=== PATIENT | female | born 1955 | race Caucasian/White ===

== ENCOUNTER 2021-10-18 11:28 | Emergency (ER) | payer MEDICARE, OTHER, SELFPAY ==
--- NOTE | 2021-10-18 11:36 | ED.SKABFB ---
HPI - Skin/Abscess/Foreign Bdy General Chief complaint: Skin/Abscess/Foreign Body Stated complaint: Rash Time Seen by Provider: 10/18/21 11:36 Source: patient and RN notes reviewed History of Present Illness HPI narrative: Patient is 66-year-old female who presents the urgent care with complaints of a possible insect bite to the right lower leg and a rash to the left lower arm. Patient states the bite was noticed approximately 1 week ago and she believes it is gotten larger and redness. Patient states it is not painful and she has been using calamine to the area as well as Campho-Phenique. Patient reports of the left arm rash 2 days ago and believes she may have poison karime. Patient has been putting the same cream to the area. Denies of any other acute complaints. No acute distress noted. Patient aware of the plan of care. Some parts of this dictation were generated by voice recognition software and may contain typographical and/or grammatical inaccuracies. Related Data Home Medications Medication Instructions Recorded Confirmed atorvastatin 20 mg tablet tablet 10/18/21 chlordiazepoxide-clidinium 5 cap 10/18/21 mg-2.5 mg capsule fexofenadine 180 mg tablet tablet 10/18/21 hydrochlorothiazide 25 mg tablet tablet 10/18/21 ketorolac 0.5 % eye drops drp 10/18/21 levothyroxine 112 mcg tablet tablet 10/18/21 (Levoxyl) losartan 25 mg tablet tablet 10/18/21 metoprolol succinate 50 mg tablet PO 10/18/21 tablet,extended release 24 hr prednisolone acetate 1 % eye drp 10/18/21 drops,suspension prednisone 5 mg tablet tablet 10/18/21 Allergies Allergy/AdvReac Type Severity Reaction Status Date / Time diphenhydramine Allergy Unknown Rash Verified 10/18/21 11:45 erythromycin base Allergy Unknown Rash Verified 10/18/21 11:45 Penicillins Allergy Unknown Rash Verified 10/18/21 11:45 Review of Systems Review of Systems: CONSTITUTIONAL: Denies fever, chills, or sweats. EYES: Denies visual changes, redness, or discharge. ENT: Denies rhinorrhea, congestion, sore throat, or otalgia. CARDIOVASCULAR: Denies chest pain, palpitations, or edema. RESPIRATORY: Denies cough or dyspnea. GASTROINTESTINAL: Denies abdominal pain, nausea, vomiting, or diarrhea. GENITOURINARY: Denies dysuria or hematuria. SKIN: Reports of a possible insect bite to the right lower leg and rash to the left lower arm MUSCULOSKELETAL: Denies back pain, joint pain, or myalgia. NEUROLOGIC: Denies headache, numbness, or weakness. All other systems reviewed are negative, except as documented in HPI. [facility] Family History Family History (Updated 07/29/17 @ 11:14 by DOCTOR UNKNOWN) Mother Family history of lung cancer Family history of malignant neoplasm of breast in first degree relative Hypertension Family history of cardiovascular disease Family history of arthritis Father Hypertension Patient's father is in good health Family history of cardiovascular disease Sibling Patient's brother is in good health Social History Social History Smoking status: Never smoker Alcohol intake: never Comments At the time of my signature, I reviewed and agree with the nursing past medical, surgical, social, and family history. There is no relevant family history pertinent to the patient complaint. Exam Narrative: GENERAL: This is a well-nourished, well-developed patient, in no apparent distress. HEAD: normocephalic, atraumatic. EYES: PERRL. Sclera clear/white. Vision is grossly intact. EARS: External ears normal NOSE: External nose normal with no obvious nasal discharge, nares without redness, no rhinorrhea. THROAT: Mucous membranes moist NECK: Neck supple CARDIOVASCULAR: Regular rate and rhythm without murmurs, gallops, or rubs. RESPIRATORY: Clear to auscultation. Breath sounds equal bilaterally. No wheezes, rales, or rhonchi. GASTROINTESTINAL: Abdomen soft, non-tender, nondistended. Bowel sounds are active. No hepato-splenomegaly, or palpa
[2021-10-18 11:40] VITALS: BP 123/71; PULSE 65; RESP 18; TEMP 36.7; O2SAT 100
== END 2021-10-18 12:00 | disposition home or self-care (01) ==
PROVIDERS: Emergency Provider Nurse Practitioner Family; PCP Internal Medicine
DX: L23.7 Allergic contact dermatitis due to plants, except food (principal); S80.861A Insect bite (nonvenomous), right lower leg, initial encounter; W57.XXXA Bitten or stung by nonvenomous insect and other nonvenomous arthropods, initial encounter
CPT/HCPCS: 99213; G0463

== ENCOUNTER 2021-10-20 16:38 | Emergency (ER) | payer MEDICARE, OTHER, SELFPAY ==
[2021-10-20 16:45] VITALS: BP 140/71; PULSE 59; RESP 16; TEMP 36.5; O2SAT 98
[2021-10-20 16:51] VITALS: BP 140/71; PULSE 59; RESP 16; TEMP 36.5; O2SAT 98
--- NOTE | 2021-10-20 17:34 | ED.GENADULT ---
HPI - General Adult General Chief complaint: Skin/Abscess/Foreign Body Stated complaint: Insect Bite History of Present Illness HPI narrative: Patient presents for evaluation of an area of redness and itching to the right lower extremity and left forearm. She was seen here on 10/18/2021 for similar symptoms. She thought perhaps she had received an insect bite to the right lower extremity. She was started on doxycycline and was given a prescription for triamcinolone. She is on prednisone 5 mg daily for an unknown autoimmune disease. At her 10/18/2021 visit she was instructed to increase her prednisone from 5 mg daily to 10 mg daily. She is unsure whether this made much of a difference. Some of the itching has improved with application of topical product. However redness seems to remain unchanged. No fever, chills, nausea, vomiting. No purulence from the affected area. She thought that the symptoms to her left forearm may have been related to poison karime. Related Data Home Medications Medication Instructions Recorded Confirmed atorvastatin 20 mg tablet tablet 10/18/21 chlordiazepoxide-clidinium 5 cap 10/18/21 mg-2.5 mg capsule fexofenadine 180 mg tablet tablet 10/18/21 hydrochlorothiazide 25 mg tablet tablet 10/18/21 ketorolac 0.5 % eye drops drp 10/18/21 levothyroxine 112 mcg tablet tablet 10/18/21 (Levoxyl) losartan 25 mg tablet 1 tablet PO 10/18/21 metoprolol succinate 50 mg tablet PO 10/18/21 tablet,extended release 24 hr prednisolone acetate 1 % eye drp 10/18/21 drops,suspension prednisone 5 mg tablet tablet 10/18/21 Allergies Allergy/AdvReac Type Severity Reaction Status Date / Time diphenhydramine Allergy Unknown Rash Verified 10/20/21 16:50 erythromycin base Allergy Unknown Rash Verified 10/20/21 16:50 Penicillins Allergy Unknown Rash Verified 10/20/21 16:50 Review of Systems Review of Systems: CONSTITUTIONAL: Denies fever, chills, or sweats. EYES: Denies visual changes, redness, or discharge. ENT: Denies rhinorrhea, congestion, sore throat, or otalgia. CARDIOVASCULAR: Denies chest pain, palpitations, or edema. RESPIRATORY: Denies cough or dyspnea. GASTROINTESTINAL: Denies abdominal pain, nausea, vomiting, or diarrhea. GENITOURINARY: Denies dysuria or hematuria. SKIN: Reports an area of redness and itching to the right lower extremity. Reports a small area of redness and itching to the left forearm MUSCULOSKELETAL: Denies back pain, joint pain, or myalgia. NEUROLOGIC: Denies headache, numbness, dizziness, or weakness. PSYCHIATRIC: Denies anxiety or depression. [facility] Past Medical History Medical History Autoimmune disease Hyperlipidemia Hypothyroid Surgical History Surgical History History of cataract surgery Family History Family History Mother Family history of lung cancer Family history of malignant neoplasm of breast in first degree relative Hypertension Family history of cardiovascular disease Family history of arthritis Father Hypertension Patient's father is in good health Family history of cardiovascular disease Sibling Patient's brother is in good health Social History Social History Smoking status: Never smoker Alcohol intake: never Substance use: never Gender identity (if verbalized by the patient): Female Spiritual care concerns: No Exam Narrative: GENERAL: Well-appearing, well-nourished, and in no acute distress. HEAD: Normocephalic, atraumatic. EYES: PERRLA and EOMI. ENT: Nares clear, no rhinorrhea or epistaxis. Mucous membranes moist. Oropharynx without tonsillar hypertrophy exudate or other lesions. Bilateral TMs pearly gutiérrez nonbulging NECK: Supple. No adenopathy or masses. No carotid bruits or JVD
[2021-10-20] MEDS: TETANUS,DIPHTHERIA,AC PERTUSSIS ADULT (0.5 ML) BOOSTRIX IM (17:35)
== END 2021-10-20 17:42 | disposition home or self-care (01) ==
PROVIDERS: Emergency Provider Nurse Practitioner; PCP Internal Medicine
DX: I77.6 Arteritis, unspecified (principal); Z23 Encounter for immunization; M35.9 Systemic involvement of connective tissue, unspecified; E78.5 Hyperlipidemia, unspecified; E03.9 Hypothyroidism, unspecified
CPT/HCPCS: 90471; 90715; 99213; G0463

== ENCOUNTER 2022-10-03 14:34 | Emergency (ER) | payer MEDICARE, OTHER, SELFPAY ==
--- NOTE | ~2022-10-03 | XR_ITS ---
EXAM: XR shoulder RT min 2V DATE: 10/03/2022 14:58 HISTORY: FELL ON RT SIDE. LROM SINCE. . COMPARISON: None available. FINDINGS: Normal mineralization. Nondisplaced fracture of the inferior rim of the glenoid. No other fracture. No dislocation. No lytic or blastic lesion. 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 No erosion or periosteal change. Soft tissues within normal limits. IMPRESSION: Osseous Bankart lesion (fracture of the inferior glenoid rim). Reviewed, dictated and finalized at location K.
[2022-10-03 14:40] VITALS: BP 122/58; PULSE 58; RESP 20; TEMP 36.3; O2SAT 100
--- NOTE | 2022-10-03 15:14 | ED.UPPEXIN ---
HPI - Extremity Injury (Upper) General Chief Complaint: Extremity Injury, Upper Stated Complaint: Right shoulder pain/fall History of Present Illness HPI narrative: Pt is a 67 y/o female, presents to with right shoulder pain after she fell today around 1300 when she accidentally tripped over a box in her kitchen, landing on her right shoulder. She did hit her head on a dog bowl but denies LOC, neck or back pain. She had assistance at home to stand as she has chronic knee pain, by EMS but signed a refusal. She agreed to come here for evaluation. Related Data Home Medications Medication Instructions Recorded Confirmed atorvastatin 20 mg tablet tablet 10/18/21 chlordiazepoxide-clidinium 5 cap 10/18/21 mg-2.5 mg capsule fexofenadine 180 mg tablet tablet 10/18/21 hydrochlorothiazide 25 mg tablet tablet 10/18/21 ketorolac 0.5 % eye drops drp 10/18/21 levothyroxine 112 mcg tablet tablet 10/18/21 (Levoxyl) losartan 25 mg tablet 1 tablet PO 10/18/21 metoprolol succinate 50 mg tablet PO 10/18/21 tablet,extended release 24 hr sertraline 50 mg tablet mg 10/03/22 Allergies Allergy/AdvReac Type Severity Reaction Status Date / Time diphenhydramine Allergy Unknown Rash Verified 10/20/21 16:50 erythromycin base Allergy Unknown Rash Verified 10/20/21 16:50 Penicillins Allergy Unknown Rash Verified 10/20/21 16:50 Review of Systems Musculoskeletal: Comments: refer to [facility] Past Medical History Medical History (Updated 10/03/22 @ 15:22 by JERSON Avilez) Autoimmune disease Hyperlipidemia Hypothyroid Surgical History Surgical History History of cataract surgery Family History Family History Mother Family history of lung cancer Family history of malignant neoplasm of breast in first degree relative Hypertension Family history of cardiovascular disease Family history of arthritis Father Hypertension Patient's father is in good health Family history of cardiovascular disease Sibling Patient's brother is in good health Social History Social History Smoking status: Never smoker Alcohol intake: never Substance use: never Gender identity (if verbalized by the patient): Female Spiritual care concerns: No Exam Const: General: cooperative, healthy appearing, comfortable, no acute distress, well developed, alert, awake and Physically active Orientation/consciousness: oriented to person, oriented to place, oriented to time and patient oriented x3 Limitations: no limitations HENMT: Head: normal to inspection, No palpable skull fracture present, normocephalic and atraumatic Ears: hearing grossly normal bilaterally, TM's normal bilaterally and TM normal on the right Mouth: Yes Normal oral and palatal mucosa present, Yes lip normal and Yes tongue normal Teeth and gingiva: dentition normal Eyes: General: appearance normal, both eyes and all related structures Visual Kolb: normal visual kolb by confrontation Cornea: corneas normal and corneas abnormal Pupils: Equal, round and reactive pupils present EOM: EOMs intact bilaterally Neck: Neck: normal visual inspection, full ROM, no lymphadenopathy, no meningeal signs, trachea midline and supple Lymphatic: no lymphadenopathy noted Resp: Effort & Inspection: normal respiratory effort Auscultation: clear to auscultation bilaterally Cardio: Palpation: normal PMI Rate: regular rate Rhythm: regular rhythm Heart sounds: S1 normal heart sound present and S2 normal heart sound present GI: Inspection: normal to inspection Back/Spine/Pelvis: Cervical Spine: normal cervical lordosis and cervical ROM normal Other: no C spine point tenderness, no step offs Skin: Other: no ecchymosis Neuro: General: oriented to person, oriented to
== END 2022-10-03 15:28 | disposition home or self-care (01) ==
PROVIDERS: Emergency Provider Nurse Practitioner Family; PCP Internal Medicine
DX: S42.144A Nondisplaced fracture of glenoid cavity of scapula, right shoulder, initial encounter for closed fracture (principal); W18.09XA Striking against other object with subsequent fall, initial encounter; D89.89 Other specified disorders involving the immune mechanism, not elsewhere classified; E78.5 Hyperlipidemia, unspecified; E03.9 Hypothyroidism, unspecified
CPT/HCPCS: 73030; 99213; A4565; G0463

== ENCOUNTER 2024-02-05 11:02 | Emergency (ER) | payer MEDICARE, OTHER, SELFPAY ==
[2024-02-05 11:26] VITALS: BP 133/62; PULSE 52; RESP 16; TEMP 36.1; O2SAT 100
--- NOTE | 2024-02-05 11:37 | ED.URI ---
HPI - URI/Sore Throat General Chief Complaint: Upper Respiratory Infection Stated Complaint: poss sinus infection Time Seen by Provider: 02/05/24 11:37 Source: patient, RN notes reviewed and old records reviewed Mode of arrival: ambulatory Limitations: no limitations History of Present Illness HPI Narrative: 68-year-old female to [facility] with complaint of headache, dry cough, nasal pain. Patient states that she attempted to treat at home with Kathy. Patient reports that her 2 weeks ago that she has had altered sleep. Patient denies fever, shortness of breath, difficulty swallowing, pertinent medical history. Patient resting comfortably in exam room in no acute distress, appears tired. Respirations even and nonlabored. Patient able to tolerate fluids by mouth. Related Data Home Medications Medication Instructions Recorded Confirmed atorvastatin 20 mg tablet 20 mg PO DAILY 10/18/21 02/05/24 fexofenadine 180 mg tablet 1 tablet PO DAILY 10/18/21 02/05/24 hydrochlorothiazide 25 mg tablet 25 mg PO DAILY 10/18/21 02/05/24 levothyroxine 112 mcg tablet 112 mcg PO DAILY 10/18/21 02/05/24 (Levoxyl) losartan 25 mg tablet 1 tablet PO DAILY 10/18/21 02/05/24 metoprolol succinate 50 mg 1 tablet PO DAILY 10/18/21 02/05/24 tablet,extended release 24 hr sertraline 50 mg tablet 50 mg PO DAILY 10/03/22 02/05/24 hydrochlorothiazide 12.5 mg capsule 12.5 mg PO DAILY 02/05/24 02/05/24 Allergies Allergy/AdvReac Type Severity Reaction Status Date / Time diphenhydramine Allergy Unknown Rash Verified 11/11/22 12:24 erythromycin base Allergy Unknown Rash Verified 11/11/22 12:24 Penicillins Allergy Unknown Rash Verified 11/11/22 12:24 Review of Systems Review of Systems: All systems reviewed & are unremarkable except as noted in HPI and below Constitutional: Constitutional: Reports as per HPI and Reports headache(s) Eyes: Eyes: Reports no additional eye complaints ENT: Reports as per HPI and Reports nose pain Cardiovascular: Cardiovascular: Reports no additional cardiovascular complaints, Denies chest pain and Denies dyspnea Respiratory: Respiratory: Reports no additional respiratory complaints, Reports cough and Denies dyspnea Musculoskeletal: Musculoskeletal: Reports no additional musculoskeletal complaints Neurologic: Reports system reviewed and no additional complaints, except as documented Psychiatric: Psychiatric: Reports no additional psychiatric complaints PMFSH Past Medical History Medical History (Reviewed 02/07/24 @ 11: by Soraya Whitehead APRN) Autoimmune disease Hyperlipidemia Hypothyroid Surgical History Surgical History (Reviewed 02/07/24 @ 11: by Soraya Whitehead APRN) History of cataract surgery Family History Family History (Reviewed 02/07/24 @ 11: by Soraya hWitehead APRN) Mother Family history of lung cancer Family history of malignant neoplasm of breast in first degree relative Hypertension Family history of cardiovascular disease Family history of arthritis Father Hypertension Patient's father is in good health Family history of cardiovascular disease Sibling Patient's brother is in good health Social History Social History (Reviewed 02/07/24 @ 11: by Soraya Whitehead APRN) Smoking status: Never smoker Alcohol intake: never Substance use: never Gender identity (if verbalized by the patient): Female Spiritual care concerns: No Comments At the time of my signature, I reviewed and agree with the nursing past medical, surgical, social, and family history. There is no relevant family history pertinent to the patient complaint. Exam Const: General: cooperative, comfortable, no acute distress, well developed, alert, tired appearing, well groomed and well nourished Nutritional Appearance: well nourished Orientation/consciousness: patient oriented x3 Limitations: no limitations HENMT: Head: normal to inspection
== END 2024-02-05 12:26 | disposition home or self-care (01) ==
PROVIDERS: Emergency Provider Nurse Practitioner Family; PCP Nurse Practitioner
DX: J32.9 Chronic sinusitis, unspecified (principal); E78.5 Hyperlipidemia, unspecified; E03.9 Hypothyroidism, unspecified; Z79.899 Other long term (current) drug therapy
CPT/HCPCS: 99213; G0463